=== PATIENT | female | born 1985 | race Caucasian/White ===

== ENCOUNTER 2024-06-24 12:43 | Emergency (ER) | payer SELFPAY ==
[~2024-06-24] VITALS: Ht 162.6 cm; Wt 92.6 kg
[2024-06-24 12:48] VITALS: BP 119/55; PULSE 86; TEMP 99; O2SAT 97
[2024-06-24] MEDS ORDERED: ketorolac trometh 30MG/ML vial 30 MG/ML VIAL IM ONE (14:25)
[2024-06-24 14:32] VITALS: RESP 14
[2024-06-24] MEDS: ketorolac trometh 15mg/ml vial 15 MG/ML ML IM ONE (14:32)
[2024-06-24] MEDS ORDERED: METH-798 PO (15:11)
[2024-06-24] MEDS ORDERED: NAPR-996 PO (15:11)
== END 2024-06-24 15:25 | disposition home or self-care (01) ==
LOC: ER 12:44
DX: S14.106A Unspecified injury at C6 level of cervical spinal cord, initial encounter (principal); S14.107A Unspecified injury at C7 level of cervical spinal cord, initial encounter; M62.838 Other muscle spasm; W20.8XXA Other cause of strike by thrown, projected or falling object, initial encounter; Y93.89 Activity, other specified; Y92.89 Other specified places as the place of occurrence of the external cause; Y99.8 Other external cause status
CPT/HCPCS: 72040; 96372; 99283; J1885